=== PATIENT | female | born 1965 | race Caucasian/White ===

== ENCOUNTER → 2018-02-10 | Day surgery (SDC) | payer OTHER ==
--- NOTE | 2018-02-13 09:44 | PATH ---
Cytology Non-Gynecological Report Patient Name: SAURAV STREETER [facility]. Rec. #: [id number] /Age/Gender: 1965 (Age: 52) / F Account: [id number] Location: RADIOLOGY INTER Taken: 02/10/2018 Received: 02/10/2018 Reported: 02/13/2018 Physicians: Ursula Pro M.D. Specimen(s) Received LEFT THYROID FNA Clinical History Left thyroid nodule Final Diagnosis THYROID, LEFT, FINE NEEDLE ASPIRATION: SATISFACTORY FOR EVALUATION [place] CLASS II: BENIGN CYTOLOGIC FINDINGS ARE CONSISTENT WITH A BENIGN FOLLICULAR NODULE WITH CYSTIC CHANGE. Electronically Signed Clau Singh M.D. Gross Description Received are eight direct smears, four of which are air-dried and Diff-Quik stained, and four of which are alcohol fixed and Pap stained. Also received is 20 ml of bloody formalin from which one cellblock is prepared.
== END | disposition home or self-care (01) ==
LOC: JRADIR 08:35
PROVIDERS: ATTEND Internal Medicine Endocrinology, Diabetes & Metabolism
PROC: 0G9G3ZX Drainage of Left Thyroid Gland Lobe, Percutaneous Approach, Diagnostic (ICD-10-PCS; principal; 2018-02-10)
DX: E04.1 Nontoxic single thyroid nodule (principal)
CPT/HCPCS: 76942; 88173; 88305-TC

== ENCOUNTER 2022-10-20 12:23 | Emergency (ER) | payer OTHER ==
[2022-10-20 12:28] VITALS: BP 131/81; PULSE 122; RESP 18; TEMP 98.6; BMI 50.9
== END 2022-10-20 13:42 | disposition home or self-care (01) ==
LOC: JER 12:23
DX: H92.21 Otorrhagia, right ear (principal); R00.0 Tachycardia, unspecified; R06.09 Other forms of dyspnea
CPT/HCPCS: 82962; 93005; 93010; 99283-25